=== PATIENT | female | born 1955 ===

== ENCOUNTER 2017-01-11 10:29 | Emergency (ER) | payer OTHER ==
[2017-01-11 10:38] VITALS: BP 118/78; PULSE 95; RESP 18; TEMP 98.1; O2SAT 97; BMI 27.4
[2017-01-11] MEDS ORDERED: Naproxen 550 mg Tab PO STA (11:00)
[2017-01-11] MEDS ORDERED: Naproxen 550 mg Tab PO ONE (11:13)
--- NOTE | 2017-01-11 11:20 | C.PDOC ---
History Of Present Illness 61 y/o female presents to the ED with complaints of lower back pain which began approx 2 weeks ago. She statespPain radiates down bilateral legs, and worsens when she wakes up. She also feels some associated leg weakness. Pt denies falls/injuries, abdominal pain, fever, dysuria/hematuria, sensory changes, extremity weakness, urinary retention, bowel/bladder incontinence. Time Seen by Provider: 01/11/17 10:32 Chief Complaint (Nursing): Back Pain History Per: Patient History/Exam Limitations: no limitations Onset/Duration Of Symptoms: Days Current Symptoms Are (Timing): Still Present Quality Of Discomfort: "Pain" Severity: Mild Associated Symptoms: New Weakness (occasional). denies: Incontinence, New Numbness Exacerbating Factor(s): Movement Past Medical History Reviewed: Historical Data, Nursing Documentation, Vital Signs Vital Signs: Last Vital Signs Temp 98.1 F 01/11/17 10:38 Pulse 95 H 01/11/17 10:38 Resp 18 01/11/17 11:29 BP 118/78 01/11/17 10:38 Pulse Ox 97 01/11/17 11:29 - Medical History PMH: Arthritis - [facility] Procedures CYSTOCELE REPAIR (10/15/13) CYSTOSCOPY NEC (10/15/13) OTHER AND UNSPECIFIED VAGINAL HYSTERECTOMY (10/15/13) URETHROVES JUNCT PLICAT (10/15/13) Family History: States: No Known Family Hx - Social History Hx Tobacco Use: No Hx Alcohol Use: No Hx Substance Use: No - Immunization History Hx Tetanus Toxoid Vaccination: No Hx Influenza Vaccination: Yes Hx Pneumococcal Vaccination: Yes Review Of Systems Except As Marked, All Systems Reviewed And Found Negative. Constitutional: Negative for: Fever, Chills Cardiovascular: Negative for: Chest Pain, Palpitations Respiratory: Negative for: Cough, Shortness of Breath Gastrointestinal: Negative for: Abdominal Pain Genitourinary: Negative for: Dysuria Musculoskeletal: Positive for: Back Pain Neurological: Positive for: Weakness (lower extremities). Negative for: Numbness Physical Exam - Physical Exam Appears: Well, Non-toxic, No Acute Distress Skin: Warm, Dry, No Rash Head: Normacephalic Oral Mucosa: Moist Cardiovascular: Rhythm Regular Respiratory: Normal Breath Sounds, No Rales, No Rhonchi, No Wheezing Gastrointestinal/Abdominal: Normal Exam, Bowel Sounds, Soft, No Tenderness Back: No CVA Tenderness, No Vertebral Tenderness, No Decreased ROM, Paraspinal Tenderness (lumbar) Extremity: Normal ROM Extremity: Bilateral: Atraumatic Neurological/Psych: Oriented x3, Normal Speech, Normal Cognition, Normal Motor ( 5/5 motor strength all ext), Normal Sensation (all extremities ) Gait: Steady ED Course And Treatment O2 Sat by Pulse Oximetry: 97 (room air) Pulse Ox Interpretation: Normal Progress Note: Plan: Patient given PO Naprosyn. Xray of LS spine ordered and reviewed. XR negative for fracture or listhesis. Patient instructed to followup with PMD in 1-2 days, or orthopedics within 1 week for Rx for outpatient MRI. She understands she should return to Ed if symptoms worsen. Reevaluation Time: 11:25 Reassessment Condition: Improved Disposition Counseled Patient/Family Regarding: Studies Performed, Diagnosis, Need For Followup, Rx Given - Disposition Referrals: Noe León MD [Staff Provider] - [facility] [Outside] Fernando Noel MD [Staff Provider] - Disposition: HOME/ ROUTINE Disposition Time: 11:25 Condition: STABLE Additional Instructions: FOLLOW UP WITH ORTHOPEDICS WITHIN 1 WEEK USE MEDICATION IS NEEDED YOU NEED OUTPATIENT MRI OF YOUR LOW BACK, ASK YOUR DOCTOR FOR PRESCRIPTION/ REFERRAL RETURN TO ER IF SYMPTOMS WORSEN Prescriptions: Naproxen [Naprosyn Tab] 375 mg PO BID PRN #20 tab PRN Reason: pain Instructions: Acute Low Back Pain (ED) Forms: [facility] (Tajik) Print Language: TURKMEN - POA Present On Arrival: None - Clinical Impression Clinical Impression: Lumbar sprain, Low back pain - Scribe Statement The provider has reviewed the documentation as recorded by the Savannah Ward Provider Attestation: All medical record entries made by the Savannah were at my direction and personally dictated by me. I have reviewed the chart and agree that the record accurately reflects my personal performance of the history, physical exam, medical decision making, and the department course for this patient. I have also personally directed, reviewed, and agree with the discharge instructions and disposition.
--- NOTE | 2017-01-11 12:40 | RAD ---
PROCEDURE: Radiographs of the Lumbar Spine. HISTORY: Low back pain COMPARISON: No prior. FINDINGS: BONES: There is mild levoscoliosis in the lumbar spine. There is mild degenerative retrolisthesis of L3 on L4 and L4 on L5. There is straightening of the lumbar spine with loss of normal lumbar lordosis. There is diffuse bone demineralization. . There is no acute fracture or spondylolysis. DISC SPACES: There is multilevel degenerative disc disease with anterior osteophytes, reduced disc heights and multilevel facet arthropathy, worse at L4-5 and L5-S1. OTHER FINDINGS: There are no pathologic soft tissue calcifications. Both sacroiliac joints are normal. IMPRESSION: 1. No acute fracture. 2. Multilevel degenerative disc disease, worse at L4-5 and L5-S1.
== END 2017-01-11 11:45 | disposition home or self-care (01) ==
LOC: C.ER 10:29
DX: S33.5XXA Sprain of ligaments of lumbar spine, initial encounter (principal); X58.XXXA Exposure to other specified factors, initial encounter; M54.5 Low back pain

== ENCOUNTER 2018-07-17 13:25 | Outpatient (CLI) | payer OTHER | END 2018-07-17 13:26 | disposition home or self-care (01) | LOC: C.LAB 13:25 | DX: E55.9 Vitamin D deficiency, unspecified (principal); M19.90 Unspecified osteoarthritis, unspecified site; Z13.0 Encounter for screening for diseases of the blood and blood-forming organs and certain disorders involving the immune mechanism; Z13.220 Encounter for screening for lipoid disorders; Z13.29 Encounter for screening for other suspected endocrine disorder ==

== ENCOUNTER 2018-08-20 13:46 | Outpatient (CLI) | payer OTHER | END 2018-08-20 13:47 | disposition home or self-care (01) | LOC: C.MAMMO 13:46 | DX: Z12.31 Encounter for screening mammogram for malignant neoplasm of breast (principal) ==